=== PATIENT | female | born 1955 | race Caucasian/White ===

== ENCOUNTER 2018-01-27 19:30 | Emergency (ER) | payer OTHER ==
[~2018-01-27] VITALS: Ht 170.2 cm; Wt 98.0 kg
[2018-01-27 20:12] VITALS: Ht 170.2 cm; Wt 98.0 kg
[2018-01-27 20:56] LABS: BASOPHIL % 0.1 % (0-2); PLATELET COUNT 221 x10^3mcL (130-400); RED CELL DISTRIBUTION WIDTH 12.9 % (11.5-14.5)
[2018-01-27 21:04] LABS: CALCIUM 8.7 mg/dL (8.5-10.1); CARBON DIOXIDE 33.2 mmol/L (21-32); CHLORIDE SERUM 95 mmol/L (98-107); GFR1 > 60 mL/min; GLUCOSE SERUM 252 mg/dL (74-106); POTASSIUM SERUM 3.3 mmol/L (3.5-5.1); SODIUM SERUM 135 mmol/L (136-145)
[2018-01-27 21:09] LABS: ALBUMIN 3.7 g/dL (3.4-5.0); ALKALINE PHOSPHATASE 128 U/L (46-116); ALT/SGPT 107 U/L (14-59); AST/SGOT 71 U/L (15-37); BILIRUBIN TOTAL 0.32 mg/dL (0.20-1.00)
[2018-01-27 21:10] LABS: TOTAL PROTEIN, SERUM 8.3 g/dL (6.4-8.2)
[2018-01-27 21:52] VITALS: BP 167/109
== END 2018-01-27 21:52 | disposition home or self-care (01) ==
LOC: ED 19:30
PROVIDERS: Emergency Medicine
DX: H33.8 Other retinal detachments (principal); I10 Essential (primary) hypertension
CPT/HCPCS: 36415